=== PATIENT | male | born 1990 | race Two or more races ===

== ENCOUNTER 2017-09-27 18:13 | Emergency (ER) | payer OTHER ==
[~2017-09-27] VITALS: Ht 180.3 cm; Wt 74.8 kg
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
[2017-09-27] MEDS ORDERED: IBUPROFEN 600 MG TABLET PO ONE ×2 (18:30)
--- NOTE | 2017-09-27 18:32 | NUR ---
PATIENT MEDICATED PER MD ORDERS. [employer] AT BEDSIDE FOR REPORT.
--- NOTE | 2017-09-27 18:35 | NUR ---
ENGLISH INSTRUCTOR AT BEDSIDE.
--- NOTE | 2017-09-27 19:10 | NUR ---
India martinez in [facility] - 09/27/17 at 1916 by MARIA ESTHER RECEIVED REPORT FROM MAHAMED LEON FOR CALEB.
--- NOTE | 2017-09-27 19:22 | NUR ---
RECEIVED REPORT FROM MAHAMED LEON FOR CALEB.
--- NOTE | 2017-09-27 19:30 | NUR ---
PT STATES HE IS GETTING ANXIOUS AND WOULD LIKE SOME MEDICATIONS FOR HIS ANXIETY. MADE AWARE.
[2017-09-27] MEDS ORDERED: LORAZEPAM 1 MG TABLET ONE (19:45)
--- NOTE | 2017-09-27 19:48 | NUR ---
EMT BEDSIDE FOR WOUND CARE AND HARVEY BANDAGE.
[2017-09-27 19:50] VITALS: BP 147/77
--- NOTE | 2017-09-27 19:52 | NUR ---
Patient discharged to home in stable condition. Written and verbal after care instructions given. Patient verbalizes understanding of instruction. VSS upon discharge.
[2017-09-27] MEDS ORDERED: LORAZEPAM 0.5 MG TABLET PO ONE (20:00)
== END 2017-09-27 19:53 | disposition home or self-care (01) ==
LOC: ER 18:14
DX: S99.912A Unspecified injury of left ankle, initial encounter (principal); S99.922A Unspecified injury of left foot, initial encounter; M25.572 Pain in left ankle and joints of left foot; F41.9 Anxiety disorder, unspecified; F17.200 Nicotine dependence, unspecified, uncomplicated; Z86.19 Personal history of other infectious and parasitic diseases; V13.4XXA Pedal cycle driver injured in collision with car, pick-up truck or van in traffic accident, initial encounter; Y93.55 Activity, bike riding; Y92.89 Other specified places as the place of occurrence of the external cause; Y99.8 Other external cause status
CPT/HCPCS: 73610; 73630; 99284; A4606; Z7610

== ENCOUNTER 2018-07-12 13:43 | Emergency (ER) | payer MEDICAID, OTHER ==
[~2018-07-12] VITALS: Ht 180.3 cm; Wt 74.8 kg
--- NOTE | 2018-07-12 13:52 | NUR ---
PT TO ER BED 11. PT IS C/O DEPRESSION, ANXIETY, AUDITORY HALLUCINATIONS W/ SI. NO ACTICE PLAN AT THIS TIME. PT IS COOPERATIVE. STABLE VITALS. AWAITING MD ALICIA.
--- NOTE | 2018-07-12 14:12 | NUR ---
DAVID FITZPATRICK AT BEDSIDE FOR EVAL.
[2018-07-12] MEDS ORDERED: LORAZEPAM 1 MG TABLET ONE (14:20)
[2018-07-12] MEDS ORDERED: OLANZAPINE 5 MG TABLET ONE (14:21)
[2018-07-12] MEDS: OLANZAPINE 5 MG TABLET PO ONE (14:25)
[2018-07-12] MEDS: LORAZEPAM 1 MG TABLET PO ONE (14:25)
--- NOTE | 2018-07-12 14:28 | NUR ---
HORTICULTURAL SPECIALTY GROWER FIELD AT BEDSIDE FOR BLOOD DRAW.
--- NOTE | 2018-07-12 14:28 | NUR ---
India martinez in [facility] - 07/12/18 at 1612 by KESHIA FAST BRIM POUNCER AT BEDSIDE FOR RAVIN.
[2018-07-12 14:33] LABS: BASOPHILS % (AUTO) 0.2 % (0.0-2.0); EOSINOPHILS % (AUTO) 2.2 % (0.0-6.0); HEMATOCRIT 44 % (39-51); HEMOGLOBIN 14.8 g/dL (13.5-17.5); LYMPHOCYTES # (AUTO) 1.7 /CMM (0.8-4.8); LYMPHOCYTES % (AUTO) 12.5 % (20.0-44.0); MEAN CORPUSCULAR HGB CONC 34 g/dl (31.0-36.0); MEAN CORPUSCULAR VOLUME 86 fL (80-96); MONOCYTES # (AUTO) 1.4 /CMM (0.1-1.30); MONOCYTES % (AUTO) 9.8 % (2.0-12.0); NEUTROPHILS # (AUTO) 10.4 /CMM (1.8-8.9); NEUTROPHILS % (AUTO) 75.3 % (43.0-81.0); PLATELET COUNT (AUTO) 274 /CMM (150-450); RED BLOOD CELL COUNT(AUTO) 5.13 MIL/uL (4.5-6.0); WHITE BLOOD COUNT (AUTO) 13.9 K/uL (4.3-11.0)
[2018-07-12 14:39] LABS: CALCIUM, SERUM 9.4 mg/dL (8.5-10.1); CARBON DIOXIDE 26 mmol/L (21-32); CHLORIDE 99 mmol/L (98-107); CREATININE 0.7 mg/dL (0.6-1.3); GLUCOSE 79 mg/dL (74-106); POTASSIUM 4.5 mmol/L (3.5-5.1); SODIUM SERUM 137 mmol/L (136-145); UREA NITROGEN, BLOOD 18 mg/dL (7-18)
[2018-07-12 14:45] LABS: ACETAMINOPHEN 0 ug/ml (10-30); ALANINE AMINOTRANSFERASE 36 U/L (12-78); ALCOHOL, BLOOD < 3 mg/dL (0-0); ALKALINE PHOSPHATASE 86 U/L (46-116); ASPARTATE AMINOTRANSFERASE 34 U/L (15-37); BILIRUBIN,DIRECT 0.2 mg/dL (0.0-0.2); BILIRUBIN,TOTAL 0.8 mg/dL (0.2-1.0); SALICYLATE 4.1 mg/dL (2.8-20.0); TOTAL PROTEIN, SERUM 7.7 g/dL (6.4-8.2)
[2018-07-12 15:00] LABS: BILIRUBIN,URINE LARGE (NEGATIVE); BLOOD, URINE Negative Ery/uL (NEGATIVE); KETONES,URINE >=160 (NEGATIVE); LEUKOCYTE ESTERASE ,URINE Negative (NEGATIVE); NITRITE, URINE Negative (NEGATIVE); PH,URINE 5.5 (5.0-8.0); PROTEIN,URINE 30 mg/dl (NEGATIVE); UGLUCOSE Negative (NEGATIVE); UROBILINOGEN,URINE 0.2 EU/dL (0.2)
[2018-07-12 15:01] LABS: APPEARANCE,URINE Slightly Cloudy (CLEAR); COLOR,URINE Dark Yellow (YELLOW)
[2018-07-12 15:09] LABS: BACTERIA,URINE None seen /HPF (None Seen); RBC,URINE 0-3 /HPF (0-2); SQUAMOUS EPITHELIAL CELL,UR Few /HPF (None Seen)
--- NOTE | 2018-07-12 15:34 | NUR ---
CALLED ART ASSOCIATE SALES MANAGER
--- NOTE | 2018-07-12 16:50 | NUR ---
ART STYLE ADVISOR AT BEDSIDE FOR PSYCH EVAL.
--- NOTE | 2018-07-12 17:35 | NUR ---
PT IS SLEEPING IN BED. EASILY AROUSABLE. ON MONITOR W/ STABLE VITALS. WILL CONTINUE TO MONITOR.
--- NOTE | 2018-07-12 19:28 | NUR ---
Patient discharged to home in stable condition. Written and verbal after care instructions given. Patient verbalizes understanding of instruction.
[2018-07-12 19:29] VITALS: BP 125/77
== END 2018-07-12 19:29 | disposition home or self-care (01) ==
LOC: ER 13:46
DX: F41.9 Anxiety disorder, unspecified (principal); R45.851 Suicidal ideations; F15.10 Other stimulant abuse, uncomplicated; F11.10 Opioid abuse, uncomplicated; F17.200 Nicotine dependence, unspecified, uncomplicated; F12.90 Cannabis use, unspecified, uncomplicated; R44.3 Hallucinations, unspecified; F32.9 Major depressive disorder, single episode, unspecified; Z60.2 Problems related to living alone
CPT/HCPCS: 36415; 80048-TC; 80076-TC; 80305; 81000-TC; 85025-TC; G0480

== ENCOUNTER 2019-09-15 04:42 | Emergency (ER) | payer MEDICAID, OTHER ==
[~2019-09-15] VITALS: Ht 180.3 cm; Wt 77.1 kg
[2019-09-15] MEDS ORDERED: LORAZEPAM INJ 2 MG/ML VIAL IV ONE (05:00)
[2019-09-15] MEDS ORDERED: LORAZEPAM INJ 2 MG/ML VIAL ONE (05:04)
--- NOTE | 2019-09-15 05:22 | NUR ---
PATIENT CAME TO ER BED 9 C/O NON-RADIATING LEFT SIDED CHEST PAIN. PT STATES THAT HE WAS WALKING ALONG THE STREETS WHEN THE LEFT SIDE OF HIS CHEST STARTED HURTING. PATIENT STATES THAT HE USED CRYSTAL METH EARILER TODAY. PATIENT IS AAOX4. CURRENTLY NO SOB. BREATHING EVENLY AND UNLABORED ON ROOM AIR. CONNECTED TO SAP ARCHITECT.
--- NOTE | 2019-09-15 05:23 | NUR ---
BLOOD DRAWN AND SENT TO LAB
[2019-09-15 05:26] LABS: BASOPHILS # (AUTO) 0.1 /CMM (0.0-0.2); BASOPHILS % (AUTO) 0.5 % (0.0-2.0); EOSINOPHILS % (AUTO) 0.4 % (0.0-6.0); HEMATOCRIT 41 % (39-51); HEMOGLOBIN 13.5 g/dL (13.5-17.5); MEAN CORPUSCULAR HGB CONC 33 g/dl (31.0-36.0); MEAN CORPUSCULAR VOLUME 86 fL (80-96); MONOCYTES # (AUTO) 1.4 /CMM (0.1-1.30); NEUTROPHILS # (AUTO) 11.8 /CMM (1.8-8.9); NEUTROPHILS % (AUTO) 77.1 % (43.0-81.0); PLATELET COUNT (AUTO) 231 /CMM (150-450); RED BLOOD CELL COUNT(AUTO) 4.76 MIL/uL (4.5-6.0); WHITE BLOOD COUNT (AUTO) 15.3 K/uL (4.3-11.0)
[2019-09-15 05:40] LABS: CALCIUM, SERUM 8.9 mg/dL (8.5-10.1); CARBON DIOXIDE 28 mmol/L (21-32); CHLORIDE 103 mmol/L (98-107); CREATININE 0.8 mg/dL (0.6-1.3); GLUCOSE 92 mg/dL (74-106); POTASSIUM 3.9 mmol/L (3.5-5.1); SODIUM SERUM 141 mmol/L (136-145); UREA NITROGEN, BLOOD 17 mg/dL (7-18)
--- NOTE | 2019-09-15 07:20 | NUR ---
ENDORSEMENT RECEIVED FROM ABHILASH IRBY FOR CALEB, RECEIVED PATIENT IN BED ASLEEP, EASILY AROUSABLE BY VOICE. HOOKED TO NUTRITION PROFESSOR AND POX, VSS. WILL CONTINUE TO MONITOR ACCORDINGLY. KEPT WARM AND COMFORTABLE.
--- NOTE | 2019-09-15 09:03 | NUR ---
IV removed. Catheter intact and site benign. Pressure and 4x4 applied to site. No bleeding noted.Patient discharged to home in stable condition. Written and verbal after care instructions given. Patient verbalizes understanding of instruction.
[2019-09-15 09:04] VITALS: BP 121/70
== END 2019-09-15 09:04 | disposition home or self-care (01) ==
LOC: ER 04:44
DX: R07.89 Other chest pain (principal); F15.10 Other stimulant abuse, uncomplicated; R45.1 Restlessness and agitation; Z88.8 Allergy status to other drugs, medicaments and biological substances; Z60.2 Problems related to living alone
CPT/HCPCS: 36415; 71045; 80048; 84484 ×2; 85025; 93005 ×2; 96374; 99285; J2060

== ENCOUNTER 2020-04-11 12:07 | Emergency (ER) | payer OTHER ==
[~2020-04-11] VITALS: Ht 180.3 cm; Wt 81.6 kg
[2020-04-11 12:10] VITALS: BP 126/81
--- NOTE | 2020-04-11 12:10 | NUR ---
SEEN AND EXAMINED BY .
--- NOTE | 2020-04-11 12:19 | NUR ---
Patient discharged in custody in stable condition. Written and verbal after care instructions given. Patient verbalizes understanding of instruction.
== END 2020-04-11 12:21 ==
LOC: ER 12:11
DX: Z02.89 Encounter for other administrative examinations (principal); F41.9 Anxiety disorder, unspecified; F32.9 Major depressive disorder, single episode, unspecified; Z88.8 Allergy status to other drugs, medicaments and biological substances; Z60.2 Problems related to living alone

== ENCOUNTER 2020-10-23 16:04 | Emergency (ER) | payer OTHER ==
[~2020-10-23] VITALS: Ht 180.3 cm; Wt 79.4 kg
--- NOTE | 2020-10-23 16:30 | NUR ---
patient came in to the er c/o right hand swelling and pain. on room air, breathing evenly and unlabored. Connected to the monitor and pulse ox. kept comfortable, will continue to monitor accordingly.
[2020-10-23 16:51] LABS: BASOPHILS # (AUTO) 0.1 /CMM (0.0-0.2); BASOPHILS % (AUTO) 0.5 % (0.0-2.0); EOSINOPHILS % (AUTO) 1.7 % (0.0-6.0); HEMATOCRIT 32 % (39-51); HEMOGLOBIN 10.4 g/dL (13.5-17.5); LYMPHOCYTES # (AUTO) 1.6 /CMM (0.8-4.8); LYMPHOCYTES % (AUTO) 10.3 % (20.0-44.0); MEAN CORPUSCULAR HGB CONC 33 g/dl (31.0-36.0); MEAN CORPUSCULAR VOLUME 83 fL (80-96); MONOCYTES # (AUTO) 1.4 /CMM (0.1-1.30); MONOCYTES % (AUTO) 9.3 % (2.0-12.0); NEUTROPHILS # (AUTO) 12.2 /CMM (1.8-8.9); NEUTROPHILS % (AUTO) 78.2 % (43.0-81.0); PLATELET COUNT (AUTO) 291 /CMM (150-450); RED BLOOD CELL COUNT(AUTO) 3.84 MIL/uL (4.5-6.0); WHITE BLOOD COUNT (AUTO) 15.5 K/uL (4.3-11.0)
[2020-10-23] MEDS ORDERED: IV NS 0.9% 1,000 ML BAG IV ONE ×2 (17:00)
[2020-10-23] MEDS ORDERED: VANCOMYCIN 1 GM in IV D5W 250 ML IV ONE (17:00)
[2020-10-23] MEDS ORDERED: PIPERACILLIN /TAZOBACTAM 3.375 G in IV D5W 50 ML IV ONE (17:00)
[2020-10-23 17:06] LABS: BILIRUBIN,TOTAL 0.1 mg/dL (0.2-1.0); CALCIUM, SERUM 8.2 mg/dL (8.5-10.1); CREATININE 0.7 mg/dL (0.6-1.3); POTASSIUM 3.8 mmol/L (3.5-5.1); TOTAL PROTEIN, SERUM 6.8 g/dL (6.4-8.2)
[2020-10-23] MEDS ORDERED: CT SWABBABLE VALVE TRANS SET 1 EA INFUS.SET MC ONE (17:21)
[2020-10-23] MEDS ORDERED: IOHEXOL-300 100 ML VIAL IV ONE (17:21)
[2020-10-23] MEDS ORDERED: IV NS 0.9% 250 ML IV ONE (17:21)
--- NOTE | 2020-10-23 18:01 | NUR ---
covid swab done and sent to the lab
--- NOTE | 2020-10-23 19:10 | NUR ---
CALLED [facility] FOR HIGHER LEVEL OF CARE, STATES NO CAPACITY FOR TRANSFERS AVAILABLE
--- NOTE | 2020-10-23 19:53 | NUR ---
RECEIVED CALL FROM [facility] BRANDT CARRERA MD DECLINED PT DUE TO SERVICE AT CAPACITY
--- NOTE | 2020-10-23 20:35 | NUR ---
[facility] paged per Dr Morton
--- NOTE | 2020-10-23 20:46 | NUR ---
Spoke with Dr Galvan - senior dot net developer chantal, [facility]. No Hand Surgeon available.
[2020-10-23] MEDS ORDERED: HYDROCODONE/APAP 10/325MG TABLET ONE (22:10)
[2020-10-23] MEDS ORDERED: HYDROCODONE/APAP 10/325MG TABLET PO ONE (22:30)
[2020-10-24] MEDS ORDERED: HYDROCODONE/APAP 10/325MG TABLET ONE (05:14)
[2020-10-24] MEDS ORDERED: HYDROCODONE/APAP 10/325MG TABLET PO ONE (05:30)
[2020-10-24] MEDS ORDERED: SULF1TAB48 PO (08:26)
--- NOTE | 2020-10-24 08:31 | NUR ---
pt wants to leave signed ama IV removed. Catheter intact and site benign. Pressure and 4x4 applied to site. No bleeding noted.PT. VERBALIZED UNDERSTANDING OF AFTERCARE INSTRUCTIONS.
[2020-10-24 08:34] VITALS: BP 151/90
== END 2020-10-24 08:34 | disposition left against medical advice (07) ==
LOC: ER 16:15
DX: L03.113 Cellulitis of right upper limb (principal); L02.511 Cutaneous abscess of right hand; S61.411S Laceration without foreign body of right hand, sequela; W25.XXXS Contact with sharp glass, sequela; Z59.0 Homelessness; F41.9 Anxiety disorder, unspecified; F11.10 Opioid abuse, uncomplicated; Z20.822 Contact with and (suspected) exposure to COVID-19
CPT/HCPCS: 36410; 36415; 73130; 73201; 80048; 80076; 83605; 85025; 85730; 87040 ×2; 87426; 96365; 96367; 99285; C9803; J2543; J3370; J7030; J7040; J7050; J7060; Q9967

== ENCOUNTER 2022-01-13 04:27 | Emergency (ER) | payer SELFPAY ==
[~2022-01-13] VITALS: Ht 180.3 cm; Wt 90.7 kg
[~2022-01-13 04:27] MED LIST: SULF1TAB48 PO
--- NOTE | 2022-01-13 05:17 | NUR ---
TO ER BED 15. BIBRA[address] FROM [address] FOR OVERDOSE. 2MG OF NARCAN IM GIVEN. PT AWAKE AND ALERT. BREATHING IS EVEN AND NON LABORED. CONNECTED TO MONITOR. AWAITING MD ORDERS
[2022-01-13 05:32] LABS: BASOPHILS # (AUTO) 0.1 K/uL (0.0-0.2); BASOPHILS % (AUTO) 0.4 % (0.0-2.0); EOSINOPHILS % (AUTO) 1.3 % (0.0-6.0); HEMATOCRIT 41 % (39-51); HEMOGLOBIN 13.9 g/dL (13.5-17.5); LYMPHOCYTES # (AUTO) 1.8 K/uL (0.8-4.8); MEAN CORPUSCULAR HGB CONC 34 g/dl (31.0-36.0); MEAN CORPUSCULAR VOLUME 84 fL (80-96); MONOCYTES # (AUTO) 1.2 K/uL (0.1-1.30); MONOCYTES % (AUTO) 8.2 % (2.0-12.0); NEUTROPHILS # (AUTO) 11.8 K/uL (1.8-8.9); NEUTROPHILS % (AUTO) 78.1 % (43.0-81.0); PLATELET COUNT (AUTO) 268 K/uL (150-450); WHITE BLOOD COUNT (AUTO) 15.1 K/uL (4.3-11.0)
[2022-01-13 05:52] LABS: CALCIUM, SERUM 9.4 mg/dL (8.5-10.1); CARBON DIOXIDE 34 mmol/L (21-32); CHLORIDE 96 mmol/L (98-107); GLUCOSE 140 mg/dL (74-106); POTASSIUM 3.7 mmol/L (3.5-5.1); SODIUM SERUM 137 mmol/L (136-145); UREA NITROGEN, BLOOD 24 mg/dL (7-18)
[2022-01-13] MEDS ORDERED: LIDOCAINE 2% JEL UROJET 10 ML MM ONE (05:53)
[2022-01-13 05:57] LABS: ALANINE AMINOTRANSFERASE 52 U/L (12-78); ALBUMIN 4.4 g/dL (3.4-5.0); ALKALINE PHOSPHATASE 110 U/L (46-116); ASPARTATE AMINOTRANSFERASE 62 U/L (15-37); BILIRUBIN,DIRECT 0.2 mg/dL (0.0-0.2); BILIRUBIN,TOTAL 0.6 mg/dL (0.2-1.0); TOTAL PROTEIN, SERUM 8.4 g/dL (6.4-8.2)
--- NOTE | 2022-01-13 05:57 | NUR ---
UNABLE TO PROVIDE URINE AT THIS TIME.
[2022-01-13 06:05] LABS: ACETAMINOPHEN 0 ug/ml (10-30); ALCOHOL, BLOOD < 3 mg/dL (0-0)
[2022-01-13] MEDS ORDERED: NALO1DIS2 IM (09:23)
--- NOTE | 2022-01-13 09:45 | NUR ---
kitchen worker at bedside talking to patient.
--- NOTE | 2022-01-13 09:55 | NUR ---
SS consult: SS Consult requested for homelessness & drug abuse. The pt. is a 32-year-old male patient who came into ED due to: Fentanyl overdose per EMR. Upon SS consult, the pt. is Alert & Oriented x 4 and makes good eye contact. The pt. appears unkempt. Pt.s speech is within normal limits. Per pt. he states he used Fentanyl daily [facility]. Per EMR, the paramedics administered 2 mg Narcan. SW explored other drugs he uses. Pt. states he has been using Meth and daily as well. This social welfare administrator provided support with motivational interviewing, along with education regarding opioid and Meth dependence, brief intervention and referral to treatment. SW offered pt. addiction resources and the following medication assisted treatment and pt. accepted them: [facility]: [address] [place] [address] Intake hours: 5:45am9:00am, walk-ins Monday, Monday, [facility]: [address] [place] [address] Intake hours: 5:45am12:30pm, Monday and [facility]: [address] [place] [address] Intake hours: 8:00am2:00pm, Monday through Monday SW explored pt.s living situation. Patient states he has been staying with his friend, salvador and could not provide address or phone number. SW explored pt.s mental health Hx. Patient stated that he has never been diagnosed a mental health disorder and is not on any medication. SW provided resources for homelessness and pt. accepted them. Pt. states he has never tried MAT treatment before and is open to trying it. Pt. is currently in the pre-contemplation stage of change. Per pt. he is ambulatory and independent with all his ADLs. SW explored pt.s support system. Pt. states his mother, Tash Kang [phone] is his support system. Plan: Pt. stated he will be returning to his friends house upon discharge and requested TAP card. SW provided TAP. WILLIE discussed with Dr. Steel. Sw provide the following resources: Year-round shelters: [facility] [place] [address] [place] [address] ; [place] [facility] [place] [address] [facility] [place] [address]; [facility] [address] [facility] [address] Hygiene: [facility]: [address] [place] ; [facility] [address] [facility] ; [facility] [address] [place] . Food Resources: [place] [facility] at [facility]- [address] [place]; Meet Each Need with Dignity ([facility]) [address] [facility]; [facility] [address] [facility]; [facility] [address] [facility] [place]. Mental Health resources provided: [facility] [address] [place], [place] [phone] ; [facility] [address], [place], [place] [phone] ; [facility] Mental [facility] [address] [place], [place] [phone] ; [facility] [address] [place], [place] [address] Healthcare Clinics: [facility] [address] [facility], [address] [place]. [place] ; [facility] [address] [facility] [address] [place] [address]; [facility] [address] [facility]. [place] [phone] Counseling--Outpatient [facility] [address] [facility], [address] [place], [place] [address] (Specializes in in-depth psychotherapy for emotional distress: anxiety, depression, interpersonal conflicts, life transitions, childhood abuse) [facility] [address] [place] [address] (Assist with solving problem marital difficulties, separation & divorce, aging parents, & grief, chronic & terminal illness) [facility] [address] [place], [place] [address] (Deal with loss & grief, anxiety, marital difficulties) Homebound/Mental Health Services [address] [place], [place] [phone] (Provide in-home mental services to people who are incapable of leaving their homes) [facility] Elder[facility] Senior Service[facility] [address] [place] [address] [facility] [address] [place], [place] [phone] PSYCHIATRIC OUTPATIENT SERVICES [facility] Partial Hospitalization and Intensive Outpatient Program (Managed Care and [place] Only)[address] [place] Bl[facility]At[facility] [phone] [facility] Partial Hospitalization and Outpatient Fjhepww73984 [facility] [place] [address] [place], [place] [phone] [facility] [place] Ctx[address] [facility] [address] [place], [place] [phone] [facility] Partial Hospitalization and Outpatient Yydxcge12568 [place], [phone] Substance Abuse resources provided included: [facility] Substance Abuse Self-Helpline (SAS) ; [facility] [address] [facility]. [place] [address] ; [facility] [address] [facility] [address] ; [facility] [address] [facility] Hospital[facility] [address] ; [facility] [address] [facility] [address] ; [facility] [address] [facility] [address] ; [facility] [address] [facility] [phone] ; [facility] Substance Abuse Helpline(SAS)[facility] ; [facility] ; [address] [place]; [facility]; [facility] [place]; [facility] [place]it [place]; [facility] [place]; [facility] [place]; [facility] [place]; [facility], [facility]. Kite; Alcoholics Anonymous -SFV; Mk-Iuhf-Eftpmxq ; Marijuana Anonymous -SFV; Narcotics Anonymous www.na.org;
[2022-01-13 10:03] VITALS: BP 120/65
--- NOTE | 2022-01-13 10:04 | NUR ---
Patient discharged to home in stable condition. Written and verbal after care instructions given. Patient verbalizes understanding of instruction.
== END 2022-01-13 10:04 | disposition home or self-care (01) ==
LOC: ER 04:35
DX: T40.411A Poisoning by fentanyl or fentanyl analogs, accidental (unintentional), initial encounter (principal); R00.0 Tachycardia, unspecified; F41.9 Anxiety disorder, unspecified; F32.A Depression, unspecified; Z88.8 Allergy status to other drugs, medicaments and biological substances; Z60.2 Problems related to living alone; Y92.89 Other specified places as the place of occurrence of the external cause
CPT/HCPCS: 36415; 80048; 80076; 80143; 80320; 82962; 85025; 93005; 99284; J3490; G0480